=== PATIENT | male | born 1940 | race Asian ===

== ENCOUNTER 2016-12-30 07:49 | Emergency (ER) | payer MEDICARE, OTHER ==
[~2016-12-30] VITALS: Ht 162.6 cm; Wt 49.0 kg
[2016-12-30] MEDS ORDERED: BACITRACIN TOP OINT 1 UD PKG TOP ONE (08:45)
[2016-12-30] MEDS ORDERED: LIDOCAINE 1% HCL (LOCAL ANESTH.) INJ 20ML MDV ID ONE (08:45)
[2016-12-30 09:58] VITALS: BP 137/93
== END 2016-12-30 11:10 | disposition home or self-care (01) ==
LOC: ER 07:59
DX: S01.112A Laceration without foreign body of left eyelid and periocular area, initial encounter (principal); S40.012A Contusion of left shoulder, initial encounter; S09.8XXA Other specified injuries of head, initial encounter; W07.XXXA Fall from chair, initial encounter; Y93.89 Activity, other specified; Y99.8 Other external cause status; Y92.89 Other specified places as the place of occurrence of the external cause
CPT/HCPCS: 12013; 70450; 73030; 99284; J2001

== ENCOUNTER 2017-01-05 22:36 | Emergency (ER) | payer OTHER ==
[2017-01-05 11:45] VITALS: BP 145/66
[~2017-01-05 22:36] MED LIST: CALCIUM CHLOR(10%) 100MG/ML 10ML SYRINGE IV ONE; DEXTROSE (50%) 50ML SYRG IV ONE; EPINEPHrine HCL 1 MG/10 ML SYRG IV ONE
[2017-01-05] MEDS ORDERED: SUCCINYLCHOLINE CHLORIDE 20 MG/ML 10ML VIAL IV ONE (23:22)
[2017-01-05] MEDS ORDERED: MIDAZOLAM DRIP 50 mg/50mL NS 50 ML IV ONE (23:47)
[2017-01-05 23:53] LABS: Allen Test Yes; Base Excess -6.6 mmol/L (-2.0-2.0); Blood COHb 0.1 % (0.5-1.5); Blood MetHb 0.3 % (0.0-1.5); MODE VENT - A/C; O2Hb 95.6 % (94.0-97.0); PCO2 69.4 mmHg (35.0-45.0); PCO2(T) 69.4 mmHg (35.0-45.0); PO2 135.6 mmHg (80.0-100.0); PO2(T) 135.6 mmHg (80.0-100.0); Sample Type Arterial; pH 7.138 (7.350-7.450)
[2017-01-06 00:42] VITALS: BP 187/65
[2017-01-06] MEDS ORDERED: cefTRIAXone 1GM/50ML D5W 50 ML IV ONE ×2 (00:46→02:00)
[2017-01-06] MEDS ORDERED: NOREPINEPHRINE BITARTRATE 250 ML IV ONE (01:04)
[2017-01-06 01:50] LABS: Basophils # (auto) 0 uL; Basophils % (auto) 0.6 % (0.0-2.0); CONDITION Y; Eosinophils # (auto) 0 uL; Eosinophils % (auto) 0.3 % (0.0-7.0); Hematocrit 28.9 % (41.0-53.0); Hemoglobin 9.4 g/dL (13.5-17.5); Lymphocytes # (auto) 1.4 uL; Lymphocytes % (auto) 45.7 % (10.0-50.0); Mean Corpuscular Hgb Conc. 32.4 g/dL (32.0-36.0); Mean Corpuscular Volume 95.6 fL (80.0-100.0); Mean Platelet Volume 7.7 fL (7.4-10.4); Monocytes # (auto) 0 uL; Monocytes % (auto) 1.1 % (0.0-12.0); Neutrophils # (auto) 1.5 uL; Neutrophils % (auto) 52.3 % (37.0-80.0); Nucleated Red Blood Cells % 2.1 %; Platelet Count (auto) 458 10^3/uL (140-450); Red Cell Distribution Width 17.7 % (11.6-16.0)
[2017-01-06 01:54] LABS: Albumin 1.8 g/dL (3.4-5.0); BUN/Creatinine Ratio 22.4; Calcium 10.5 mg/dL (8.5-10.1)
[2017-01-06 01:58] LABS: Bilirubin, Total 0.8 mg/dL (0.2-1.0); Total Protein 4.9 g/dL (6.4-8.2)
[2017-01-06] MEDS ORDERED: SODIUM BICARBONATE 8.4 % INJ 50ML VIAL IV ONE (02:00)
[2017-01-06] MEDS ORDERED: DOPamine 1600MCG/ML 250 ML IV ONE (02:00)
[2017-01-06] MEDS ORDERED: SODIUM CHLORIDE 0.9% 2,000 ML IV ONE (02:00)
[2017-01-06] MEDS ORDERED: NOREPINEPHRINE BITARTRATE 250 ML IV SCH (02:00)
[2017-01-06 02:01] LABS: INR 1.26 (0.9-1.15)
[2017-01-06 02:02] LABS: Prothrombin Time 13.8 sec (9.37-12.3)
[2017-01-06 04:50] LABS: Allen Test Modified; Blood 02Sat 84.3 % (96-100); Blood COHb 0.3 % (0.5-1.5); Blood MetHb 0.1 % (0.0-1.5); HHb 15.6 % (0.0-5.0); MODE VENT - A/C; PCO2 57.7 mmHg (35.0-45.0); PCO2(T) 57.7 mmHg (35.0-45.0); PO2 63.7 mmHg (80.0-100.0); PO2(T) 63.7 mmHg (80.0-100.0); Sample Type Arterial; pH 7.237 (7.350-7.450)
[2017-01-06 05:00] VITALS: BP 51/35
[2017-01-06] MEDS ORDERED: MIDAZOLAM DRIP 50 mg/50mL NS 50 ML IV ONE (05:51)
[2017-01-06] MEDS ORDERED: MIDAZOLAM DRIP 50 mg/50mL NS 50 ML IV SCH (06:00)
== END 2017-01-06 02:54 | disposition expired ==
LOC: ER 22:36 → EDBD 22:36 → ER 01-06 02:54
DX: S09.90XA Unspecified injury of head, initial encounter (principal); S05.10XA Contusion of eyeball and orbital tissues, unspecified eye, initial encounter; S40.021A Contusion of right upper arm, initial encounter; I95.9 Hypotension, unspecified; X58.XXXA Exposure to other specified factors, initial encounter; Y93.89 Activity, other specified; Y99.8 Other external cause status; Y92.89 Other specified places as the place of occurrence of the external cause
CPT/HCPCS: 31500; 36415; 36600; 51702; 70450; 71010; 74176; 80053; 82805; 82962; 84484; 85025; 85379; 85610; 85730; 87070; 87077; 87186; 87205; 92950; 93005; 94003; 96365; 96375; 99152; 99153; 99285; J0171; J0330; J0696; J7042; 94002; 96368